=== PATIENT | female | born 1965 | race African-American/Black ===

== ENCOUNTER 2020-01-08 06:16 | Observation (INO) | payer OTHER ==
[2020-01-07 10:51] VITALS: BMI 32.4
[2020-01-08] MEDS ORDERED: Fentanyl 100 MCG/2 ML VIAL ONE ×3 (07:52→10:11)
[2020-01-08] MEDS ORDERED: SUGAMMADEX SODIUM 200 MG/2 ML VIAL ONE (08:08)
[2020-01-08 08:17] LABS: #Eosinphils 0.1 thou/uL (0.0-0.7); #Lymphocytes 1.1 thou/uL (1.20-3.40); #Monocytes 0.3 thou/uL (0.11-0.59); #Neutrophils 4.2 thou/uL (1.40-6.50); %Basophils 0.5 % (0.0-1.0); %Eosinophils 2.2 % (0.0-10.0); %Lymphocytes 18.9 % (21.0-51.0); %Monocytes 4.9 % (0.0-10.0); %Neutrophils 73.6 % (42.0-75.0); Hemoglobin 11.4 g/dL (12.0-16.0); Mean Corpuscular HGB CONC 34.3 g/dL (32.0-36.0); Mean Corpuscular Volume 87.5 fL (78.0-98.0); Platelet Count 238 thou/uL (130-400); RBC Distribution Width 12.6 % (11.5-14.5); White Blood Cell (WBC) Count 5.8 thou/uL (4.8-10.8)
[2020-01-08 08:36] LABS: Anion Gap 13 mmol/L (10-20); BUN (Urea Nitrogen) 12 mg/dL (9.8-20.1); Calc. Creatinine Clearance 115 mL/min (70-130); Calcium 8.9 mg/dL (7.8-10.44); Carbon Dioxide 25 mmol/L (22-29); Chloride 94 mmol/L (98-107); Estimated GFR-MDRD Greater than 90; Glucose 114 mg/dL (70-105); Potassium 3.9 mmol/L (3.5-5.1); Sodium 128 mmol/L (136-145)
[2020-01-08] MEDS ORDERED: PROPOFOL 200 MG/20 ML VIAL ONE (10:24)
[2020-01-08] MEDS ORDERED: Glycopyrrolate 0.2 MG/ML 5 ML SYRINGE ONE (10:24)
[2020-01-08] MEDS ORDERED: Lidocaine 1% PF 5 ML VIAL ONE (10:24)
[2020-01-08] MEDS ORDERED: Succinylcholine Chloride 20 MG/ML 10 ml SYRINGE FS ONE (10:24)
[2020-01-08] MEDS ORDERED: Rocuronium Bromide 10 MG/ML (10ML VIAL) ONE (10:24)
[2020-01-08] MEDS ORDERED: Morphine 4 MG/ML VIAL ONE (10:24)
[2020-01-08] MEDS ORDERED: Morphine 2 MG/ML SYRINGE ONE ×3 (10:37→11:01)
[2020-01-08] MEDS ORDERED: hydrALAZINE 20 MG/ML VIAL ONE (10:43)
[2020-01-08] MEDS ORDERED: HYDROcodone/Acetaminophen 10/325 mg Tablet PO PRN (10:46)
[2020-01-08] MEDS ORDERED: Mag-Al 1200 mg/1200 mg/30 ML UDCUP PO PRN (10:46)
[2020-01-08] MEDS ORDERED: diphenhydrAMINE 25 MG CAP PO PRN (10:46)
[2020-01-08] MEDS ORDERED: Morphine 4 MG/ML VIAL SLOW IVP PRN (10:46)
[2020-01-08] MEDS ORDERED: Milk Of Magnesia 30 ML UDCUP PO PRN (10:46)
[2020-01-08] MEDS ORDERED: diphenhydrAMINE 50 MG/ML VIAL IVP PRN (10:46)
[2020-01-08] MEDS ORDERED: Morphine 2 MG/ML SYRINGE SLOW IVP PRN (10:46)
[2020-01-08] MEDS ORDERED: Promethazine HCl 25 MG/ML VIAL IM PRN (10:46)
[2020-01-08] MEDS ORDERED: Promethazine 25 MG TAB PO PRN (10:46)
[2020-01-08] MEDS ORDERED: traMADol HCl 50 MG TAB PO PRN ×2 (10:46)
[2020-01-08] MEDS ORDERED: Promethazine HCl 12.5 MG SUPP PR PRN (10:46)
[2020-01-08] MEDS ORDERED: Ondansetron PF 4 MG/2 ML Vial IM PRN (10:49)
[2020-01-08] MEDS ORDERED: PROVENTIL INHALER 6.7 G (200 INHALATIONS) INH PRN (10:59)
[2020-01-08] MEDS ORDERED: Morphine Sulfate 2 MG/ML SYRINGE SLOW IVP PRN (11:05)
[2020-01-08] MEDS ORDERED: Non-Formulary Medication 1 EACH PO PRN (11:05)
[2020-01-08] MEDS ORDERED: HYDROmorphone 2 MG/ML VIAL SLOW IVP PRN (11:05)
[2020-01-08] MEDS ORDERED: Promethazine HCl 25 MG/ML VIAL IM/IV PRN (11:05)
[2020-01-08] MEDS ORDERED: PACU-Morphine 4MG/ML VIAL SLOW IVP PRN (11:05)
[2020-01-08] MEDS ORDERED: Ondansetron HCl/PF 4 MG/2 ML Vial IVP PRN (11:05)
[2020-01-08] MEDS ORDERED: Insulin Glargine 20 UNITS in Pre-Filled Syringe 1 EACH SC SCH (11:15)
[2020-01-08] MEDS: HYDROcodone/Acetaminophen 10/325 mg Tablet PO PRN ×3 (12:34→21:55)
[2020-01-08] MEDS: Sodium Chloride 0.9% 1,000 ML IV SCH (12:43)
--- NOTE | 2020-01-08 13:01 | OP ---
DATE OF PROCEDURE: 01/08/2020 DIRECTOR OF VENDOR MANAGEMENT: Kathrine Truong PA-C PROCEDURE PERFORMED: L3 through L5 laminectomy. DESCRIPTION OF PROCEDURE: The patient was brought to the operating room and intubated. She was rolled in a prone position on gel-filled chest rolls. An incision was made exposing L3 through L5 and the level was confirmed by x-ray. We performed complete L5, complete L4, and inferior L3 laminectomies, completely decompressing the neural elements. As expected, there was extensive epidural lipomatosis. After complete decompression had been secured, the wound was extensively irrigated and MAC hemostasis was secured. Vancomycin powder was applied and the wound was closed in anatomic layers. Job ID: [id number]
[2020-01-08] MEDS: CEFAZOLIN 2 GM in Premix Bag 1 BAG IVPB SCH ×2 (14:47→21:50)
[2020-01-08] MEDS: Gabapentin 400 MG CAP PO SCH ×2 (14:48→20:20)
[2020-01-08] MEDS ORDERED: Non-Formulary Item 1 EACH (Fluticasone/Salmeterol [Advair Diskus 100/50] 1 PUFF) INH PRN (17:35)
[2020-01-08] MEDS ORDERED: Non-Formulary Item 1 EACH (Insulin Detemir [Levemir Flextouch] 20 UNIT) SQ PRN (17:35)
--- NOTE | 2020-01-08 18:18 | CON ---
DATE OF CONSULTATION: 01/08/2020 REASON FOR CONSULTATION: Medical management. HISTORY OF PRESENT ILLNESS: Ms. Thompson is a 54-year-old female with past medical history of hypertension; diabetes mellitus, type 2; hyperlipidemia; anxiety; asthma; underwent laminectomy. Currently, the patient is postoperative. Other than pain, no other symptoms. Denies shortness of breath. The patient reviewed, chart reviewed. The patient was seen and examined. PHYSICAL EXAMINATION: CHEST: Fair bilateral air entry. HEART: S1 and S2. Regular. ABDOMEN: Obese, soft. Bowel sounds present. NEUROLOGIC: Awake, alert, oriented x3. PSYCHIATRIC: Normal mood. VITAL SIGNS: Reviewed. LABORATORY DATA: Reviewed. Sodium is 128. ASSESSMENT: 1. Hypertension. 2. Diabetes mellitus, type 2. 3. Hyperlipidemia. 4. Anxiety. 5. Postoperative, laminectomy. 6. Asthma. PLAN: We will review the patient's home medications and reconcile. Bronchodilators as needed. Recheck serum sodium in a.m. Further management as per Surgery. Thank you for consulting us. We will follow the patient as needed. Job ID: [id number]
[2020-01-08] MEDS: Mometasone/Formoterol 120 PUFF INHALER INH SCH (18:47)
[2020-01-08] MEDS: tiZANidine HCl 4 MG TAB PO PRN (20:29)
[2020-01-08] MEDS ORDERED: Montelukast Sodium 10 mg Tablet PO SCH (21:00)
[2020-01-08] MEDS ORDERED: Atorvastatin Calcium 20 MG TAB PO SCH (21:00)
[2020-01-09] MEDS: Sodium Chloride 0.9% 1,000 ML IV SCH ×2 (02:02→18:57)
[2020-01-09] MEDS: HYDROcodone/Acetaminophen 10/325 mg Tablet PO PRN ×5 (02:48→22:25)
[2020-01-09] MEDS: CEFAZOLIN 2 GM in Premix Bag 1 BAG IVPB SCH ×3 (05:33→21:29)
[2020-01-09 06:12] LABS: Anion Gap 11 mmol/L (10-20); BUN (Urea Nitrogen) 8 mg/dL (9.8-20.1); Calc. Creatinine Clearance 131 mL/min (70-130); Calcium 8.4 mg/dL (7.8-10.44); Carbon Dioxide 22 mmol/L (22-29); Chloride 97 mmol/L (98-107); Estimated GFR-MDRD Greater than 90; Glucose 140 mg/dL (70-105); Sodium 126 mmol/L (136-145)
--- NOTE | 2020-01-09 07:03 | PRG ---
DATE OF SERVICE: 01/09/2020 The patient is postoperative day #1, status post L3 through L5 laminectomy. Following the surgery, she was transitioned to the Med/Surg floor, where her pain has been well-controlled with p.o. medications, she is tolerating regular diet, and she is voiding appropriately. She did have a YENY drain placed and had 120 mL out overnight. On exam this morning, the patient awakens easily. She is in no acute distress. Her vital signs are stable. She is moving all 4s easily in the bed. We will plan to leave YENY drain in place. Continue IV antibiotics at this time. We will continue to mobilize appropriately and I anticipate YENY drain. We will be able to remove it in the next 1 to 2 days as well as the patient should be able to be discharged to home in the next 1 to 2 days. Job ID: [id number]
[2020-01-09] MEDS: Mometasone/Formoterol 120 PUFF INHALER INH SCH ×2 (07:40→19:19)
[2020-01-09] MEDS: Gabapentin 400 MG CAP PO SCH ×3 (08:00→20:23)
[2020-01-09] MEDS: Montelukast Sodium 10 mg Tablet PO SCH (08:01)
[2020-01-09] MEDS: Anastrozole 1 MG TAB PO SCH (08:54)
[2020-01-09] MEDS ORDERED: Lisinopril/Hydrochlorothiazide 20 mg/12.5 mg Tablet PO SCH ×2 (09:00)
[2020-01-09] MEDS ORDERED: Dextrose 50% Abboject 50 ML SYRINGE SLOW IVP PRN (09:10)
[2020-01-09] MEDS ORDERED: Insulin Regular 300 UNITS/3 ML VIAL SC PRN (09:10)
[2020-01-09] MEDS ORDERED: Dextrose 5% in Water 1,000 ML IV PRN (09:10)
[2020-01-09] MEDS: Insulin Regular 300 UNITS/3 ML VIAL SC PRN (12:11)
[2020-01-09 15:25] LABS: Anion Gap 12 mmol/L (10-20); BUN (Urea Nitrogen) 8 mg/dL (9.8-20.1); Calc. Creatinine Clearance 115 mL/min (70-130); Calcium 8.2 mg/dL (7.8-10.44); Carbon Dioxide 22 mmol/L (22-29); Chloride 97 mmol/L (98-107); Estimated GFR-MDRD Greater than 90; Glucose 106 mg/dL (70-105); Potassium 4.3 mmol/L (3.5-5.1); Sodium 127 mmol/L (136-145)
[2020-01-09] MEDS ORDERED: Magnesium Sulfate 4 GM in Sodium Chloride 0.9% 250 ML 250 ML IVPB SCH (17:15)
[2020-01-09] MEDS: Lisinopril 5 MG TAB PO SCH ×2 (18:03→20:23)
[2020-01-09] MEDS: tiZANidine HCl 4 MG TAB PO PRN (18:06)
[2020-01-09] MEDS ORDERED: Atorvastatin Calcium 20 MG TAB PO SCH (21:00)
--- NOTE | 2020-01-09 23:44 | PDOC.HOSPP ---
- Subjective Encounter Date: 01/09/20 Encounter Time: 19:00 Subjective: Patient seen and examined for med mngt. Pain controlled. No CP/SOB. No new complaints. No overnight events - Objective Vital Signs & Weight: Vital Signs (12 hours) Temp Pulse Resp BP BP Pulse Ox 01/09/20 20:23 68 135/83 01/09/20 20:00 97.8 F 68 18 135/83 98 01/09/20 19:19 67 16 100 01/09/20 15:29 98.1 F 67 16 149/91 H 98 Weight Weight 189 lb I&O: 01/08/20 01/09/20 01/10/20 06:59 06:59 06:59 Output Total 100 60 Balance -100 -60 Result Diagrams: 01/08/20 08:07 01/09/20 14:59 Additional Labs: Accuchecks 01/09/20 01/09/20 01/09/20 20:43 15:31 10:40 POC Glucose 169 H 116 H 172 H Laboratory Tests 01/09/20 01/09/20 14:59 14:59 Serum Osmolality 267 L Magnesium 1.4 L EKG Reviewed by me: Yes (SR) Hospitalist ROS - Review of Systems Respiratory: denies: cough, dry, shortness of breath, hemoptysis, SOB with excertion, pleuritic pain, sputum, wheezing, other Cardiovascular: denies: chest pain, palpitations, orthopnea, paroxysmal noc. dyspnea, edema, light headedness, other Gastrointestinal: denies: nausea, vomiting, abdominal pain, diarrhea, constipation, melena, hematochezia, other - Medication Medications: Active Medications Generic Name Dose Route Start Last Admin Trade Name Freq PRN Reason Stop Dose Admin Hydrocodone Bitart/Acetaminophen 2 tab 01/08/20 10:46 01/09/20 22:25 [place] 10/325 PO 2 tab Q4H PRN Administration PAIN (4-6) Anastrozole 1 mg 01/09/20 09:00 01/09/20 08:54 Arimidex PO 1 mg DAILY KEILA Administration Atorvastatin Calcium 20 mg 01/09/20 21:00 01/09/20 20:22 Lipitor PO 20 mg HS KEILA Administration Gabapentin 800 mg 01/08/20 15:00 01/09/20 20:23 Neurontin PO 800 mg TID KEILA Administration Sodium Chloride 1,000 mls @ 75 mls/hr 01/08/20 10:46 01/09/20 18:57 Normal Saline 0.9% IV Not Given .[id number] KEILA Cefazolin Sodium/Dextrose 2 gm 50 mls @ 100 mls/hr 01/08/20 14:00 01/09/20 21 :29 / Device IVPB 50 mls Q8HR KEILA Administration Insulin Human Regular 0 units 01/09/20 09:10 01/09/20 12:11 Humulin R SC 2 units .MILD SLIDING SCALE PRN Administration Mild Correctional Scale Lisinopril 5 mg 01/09/20 09:00 01/09/20 20:23 Zestril PO 5 mg BID KEILA Administration Mometasone Furoate/Formoterol Fumar 2 puff 01/08/20 18:30 01/09/20 19:19 Dulera 100 Mcg/5 Mcg Inhaler INH 2 puff BID-RT KEILA Administration Montelukast Sodium 10 mg 01/09/20 09:00 01/09/20 08:01 Singulair PO 10 mg DAILY KEILA Administration Sertraline HCl 50 mg 01/09/20 09:00 01/09/20 08:00 Zoloft PO 50 mg DAILY KEILA Administration Tizanidine HCl 4 mg 01/08/20 10:46 01/09/20 18:06 Zanaflex PO 4 mg Q6H PRN Administration MUSCLE SPASM Tramadol HCl 100 mg 01/08/20 10:46 01/09/20 20:35 Ultram PO 100 mg Q6H PRN Administration PAIN (4-6) - Exam General Appearance: NAD Neck: supple, no JVD Heart: RRR, no gallops Respiratory: no rales, no ronchi Gastrointestinal: non-tender, non-distended, normal bowel sounds Extremities: no clubbing Neurological: no new deficit Psychiatric: normal affect, A&O x 3 Hosp A/P - Plan DVT proph w/SCDs Hypotonic hyponatremia - prob due to diuretics Hypomagnesemia HTN HLD DM2 Obesity BMI 32.4 Chronic low back pain Anxiety PLAN: Cont IVF DC HCTZ Replace Magnesium Cont Zoloft Cont sliding scale Restart Lantus in AM Cont other meds as above
[2020-01-10] MEDS: Sodium Chloride 0.9% 1,000 ML IV SCH (02:41)
[2020-01-10] MEDS: tiZANidine HCl 4 MG TAB PO PRN ×2 (04:49→11:17)
[2020-01-10] MEDS: CEFAZOLIN 2 GM in Premix Bag 1 BAG IVPB SCH (04:50)
[2020-01-10] MEDS: HYDROcodone/Acetaminophen 10/325 mg Tablet PO PRN ×2 (04:50→11:17)
[2020-01-10 06:00] LABS: Anion Gap 12 mmol/L (10-20); BUN (Urea Nitrogen) 7 mg/dL (9.8-20.1); Calc. Creatinine Clearance 123 mL/min (70-130); Calcium 8.5 mg/dL (7.8-10.44); Carbon Dioxide 25 mmol/L (22-29); Chloride 94 mmol/L (98-107); Estimated GFR-MDRD Greater than 90; Glucose 137 mg/dL (70-105); Magnesium 1.7 mg/dL (1.6-2.6); Potassium 4.2 mmol/L (3.5-5.1); Sodium 127 mmol/L (136-145)
[2020-01-10] MEDS: Insulin Regular 300 UNITS/3 ML VIAL SC PRN (06:01)
[2020-01-10] MEDS: Mometasone/Formoterol 120 PUFF INHALER INH SCH (06:53)
[2020-01-10] MEDS ORDERED: Methocarbamol 500 MG TAB PO PRN (08:24)
[2020-01-10] MEDS ORDERED: Insulin Glargine 10 UNITS in Pre-Filled Syringe 1 EACH SC SCH (09:00)
[2020-01-10] MEDS: Lisinopril 5 MG TAB PO SCH (09:14)
[2020-01-10] MEDS: Gabapentin 400 MG CAP PO SCH (09:14)
[2020-01-10] MEDS: Montelukast Sodium 10 mg Tablet PO SCH (09:16)
[2020-01-10] MEDS: Anastrozole 1 MG TAB PO SCH (11:06)
[2020-01-10 11:42] VITALS: BP 115/73; TEMP 98
--- NOTE | 2020-01-10 15:07 | DIS ---
DATE OF ADMISSION: 01/08/2020 DATE OF DISCHARGE: 01/10/2020 The patient is a 54-year-old female, recently evaluated in our office for progressive back pain and neurogenic claudication. She was found to have significant lumbar stenosis from L3 through L5. She underwent L3 through L5 laminectomy on 01/08/2020. Following the surgery, she was transitioned to the Med/Surg floor, where her pain has been well controlled with p.o. medications, she is tolerating a regular diet, and she is voiding appropriately. Her YENY output has trended down and was only 60 overnight. I will plan to dismiss the patient to home. I have discussed home care and precautions. We will follow up with the patient in 2 weeks. She has been provided with a short supply of [place] until she can get back with her pain management physician. I checked PROP MAKER aware and there were no script discrepancies. Job ID: [id number]
== END 2020-01-10 14:37 | disposition home or self-care (01) ==
LOC: SDC 06:16 → SURG A 10:22
PROVIDERS: ADMIT Neurological Surgery; ATTEND Neurological Surgery
PROC: 01NB0ZZ Release Lumbar Nerve, Open Approach (ICD-10-PCS; principal; 2020-01-08)
DX: M48.062 Spinal stenosis, lumbar region with neurogenic claudication (principal); J44.9 Chronic obstructive pulmonary disease, unspecified; E11.9 Type 2 diabetes mellitus without complications; I10 Essential (primary) hypertension; E78.5 Hyperlipidemia, unspecified; F41.9 Anxiety disorder, unspecified; Z98.890 Other specified postprocedural states; Z79.899 Other long term (current) drug therapy
CPT/HCPCS: 36415; 36416; 76000; 80048; 83735; 83930; 85025; 90471; 90732; 93005; 93010; 96365; 96366; 96375; 96376; G0009; G0378; J0360; J0690; J1815; J2001; J2270; J2704; J3010; J3370; J3475; J7050